=== PATIENT | male | born 1970 | race Caucasian/White ===

== ENCOUNTER → 2024-02-09 | Outpatient (CLI) | payer MEDICARE, MEDICAID, SELFPAY ==
--- NOTE | 2024-02-09 11:30 | XR_ITS ---
Examination: CT chest, without intravenous contrast. Sagittal and coronal 2-D reconstructions. Exam date and time: February 09, 2024 1127 hours INDICATIONS: Nicotine dependence knee 5 years, cardiac stent placement last year CTDI:vol (mGy) 14.2 DLP: (mGycm) 548 Technique: Multiple 3.0 mm axial sections of the chest to been obtained. Bone and lung density settings are obtained. Sagittal and coronal 2-D reconstructions have been obtained. Low dose protocols were performed. One or more of the following dose reduction techniques were used; automated exposure control, adjustment of the mA and/or KV according to patient size, use of iterative reconstruction technique. Findings: No thoracic aortic aneurysm dilatation Pulmonary artery segments are not enlarged Heavy calcification coronary arteries No paratracheal tracheobronchial or bronchopulmonary adenopathy 2 mm pulmonary nodule right upper lobe image 149 2 mm pulmonary nodule right upper lobe image 158 2 mm pulmonary nodule right midlung image 187 2 mm pulmonary nodule left lower lobe image 203 3 mm pulmonary nodule left lower lobe image 249 3 mm pulmonary nodule left lower lobe image 39 4 mm pulmonary nodule right lower lobe image 274 No pneumonia or pulmonary edema No focal liver or splenic lesions No gallstones Mild osteopenia IMPRESSION: Subcentimeter pulmonary nodules as above With this study as baseline recommend 6 month follow-up CT chest without contrast to document stability of these pulmonary nodules
== END | disposition home or self-care (01) ==
PROVIDERS: Referring Provider Nurse Practitioner Family; Visit Provider Nurse Practitioner Family
DX: R91.8 Other nonspecific abnormal finding of lung field (principal); Z87.891 Personal history of nicotine dependence
CPT/HCPCS: 71271

== ENCOUNTER → 2024-03-04 | Outpatient (CLI) | payer MEDICARE, MEDICAID, SELFPAY ==
--- NOTE | 2024-03-04 09:00 | XR_ITS ---
Examination: MRI left hip without intravenous contrast. Date and time of exam: March 04, 2024 1112 hours INDICATIONS: Patient fell 3 years ago with injury of the left hip, persistent left hip pain and stiffness Technique: Multiple MRI images of the left hip have been obtained T1 weighted coronal sections, TR 500, TE 12 Proton density coronal fat saturated images, TR 3000, TE 71 T2-weighted coronal images, 5850, TE 104 T1-weighted axial images, TR 521, TE 12 T2-weighted axial fat suppressed images, TR 5730, TE 103. Findings: Moderate narrowing right and left hip joints No occult fracture or marrow edema bone contusion or avascular necrosis involving the left or right hip High-resolution left hip images demonstrate mild fraying of the superior left hip labral margins Bones of the pelvis intact IMPRESSION: Moderate narrowing right and left hip joints No occult fracture or marrow edema or bone contusion Mild fraying of the left hip superior labral margin
--- NOTE | 2024-03-04 09:45 | XR_ITS ---
Exam: MRI knee without contrast, left Date and time of exam: March 04, 2024 11:12 AM Comparison January 22, 2020 INDICATIONS: Injury to the knee 30 years ago with increasing knee pain and instability joint clicking stiffness difficulty walking Technique: Multiple axial, coronal, and sagittal sections on the knee have been obtained. T2-Weighted sagittal, fat-suppressed images, TR 3,500, TE 62, T2 weighted coronal fat-saturated images, TR 3,500, TE 62 Proton density sagittal sections, TR 1800, TE 31. T-1 weighted coronal images, TR 524, TE 13.0 Findings: Medial meniscus anterior horn intact. Medial meniscus, body is intact. Posterior horn medial meniscus intact. Lateral meniscus anterior horn horizontal linear tear Lateral meniscus, body is intact Posterior horn lateral meniscus is intact Anterior cruciate ligament moderate sprain Posterior cruciate ligament appears intact. Knee effusion is small. Quadriceps and patellar tendons appear intact. There is no evidence of tendinosis. Inflammatory change or fracture of Hoffa's fat pad is not seen. Medial patellar facet demonstrates mild thinning. Lateral patellar facet cartilage demonstrates mild thinning. Trochlear cartilage demonstrates mild thinning. Marrow signal adequate. Medial collateral ligament appears intact. No meniscocapsular separation is seen. Illiotibial band and fibular collateral ligament are intact. Biceps femoris tendons appear intact. Medial femoral condylar articular cartilage demonstrates moderate thinning. Lateral femoral condylar articular cartilage demonstratesmoderate thinning. Tibial plateau cartilage demonstrates moderate thinning. Impression: Horizontal linear tear anterior horn lateral meniscus Moderate sprain anterior cruciate ligament
== END | disposition home or self-care (01) ==
PROVIDERS: PCP Nurse Practitioner Family; Referring Provider Nurse Practitioner Family; Visit Provider Nurse Practitioner Family
DX: S83.282A Other tear of lateral meniscus, current injury, left knee, initial encounter (principal); S83.512A Sprain of anterior cruciate ligament of left knee, initial encounter; X58.XXXA Exposure to other specified factors, initial encounter
CPT/HCPCS: 73721

== ENCOUNTER → 2024-06-17 | Outpatient (CLI) | payer MEDICARE, MEDICAID, SELFPAY ==
--- NOTE | 2024-06-17 10:33 | XR_ITS ---
Examination: CT soft tissue neck, with intravenous contrast. 2-D coronal reconstructions. 2-D sagittal reconstructions. Date and time of exam :June 17, 2024 1145 hours Comparison January 25, 2023 INDICATIONS: Difficulty with swallowing 1 year. CTDI: vol (mGy):10.4 DLP: (mGycm):320 Technique: 1.25 mm axial sections of the neck of the obtained. Coronal and sagittal reconstructions have been obtained. Intravenous contrast administered 45 cc Isovue-300. Low dose protocols were performed. One or more of the following dose reduction techniques were used; automated exposure control, adjustment of the mA and/or KV according to patient size, use of iterative reconstruction technique. Findings: The optic globes exhibit symmetry Symmetrical nasopharynx oropharynx Small bilateral carotid triangle lymph nodes, the largest on the left side 9 mm, the largest on the right side 8 mm The larynx appears normal 4 mm right thyroid nodule, no thyromegaly Symmetrical submandibular glands Normal epiglottis Moderate to advanced degenerative disc disease C5-C6 IMPRESSION: At this time no pathologic lymphadenopathy Given the patient's presentation, consider standard fluoroscopically guided esophagram follow-up
[2024-06-17 11:31] LABS: Anion Gap 8 (7-16); BUN/Creatinine Ratio 19 Ratio (12-20); Blood Urea Nitrogen 35 mg/dL (9-23); Calcium 9.7 mg/dL (8.3-10.6); Carbon Dioxide 26.8 mMol/L (20.0-31.0); Chloride 108 mMol/L (98-107); Creatinine (Component) 1.8 mg/dL (0.6-1.3); Glucose 117 mg/dL (74-106); Osmolality,Calculated 293 (275-295); Potassium 4.7 mMol/L (3.4-5.1); Sodium 143 mMol/L (136-145); eGFR 44 See Note
[2024-06-17 12:05] LABS: Parathyroid Hormone Intact 70.9 pg/ml (18.5-88.0)
== END | disposition home or self-care (01) ==
LOC: CDIM 10:04
PROVIDERS: Referring Provider Nurse Practitioner Family; Visit Provider Nurse Practitioner Family
DX: R59.0 Localized enlarged lymph nodes (principal)
CPT/HCPCS: 36415; 70491; 80048; 83970; A4649; Q9967

== ENCOUNTER → 2024-07-04 | Outpatient (CLI) | payer MEDICARE, MEDICAID, SELFPAY ==
--- NOTE | 2024-07-04 | XR_ITS ---
Examination: Knee, left , 3 views Technique: Knee AP, lateral, oblique 3 views Date and time of exam: July 04, 2024 1220 hours INDICATIONS: Left knee pain one year. FINDINGS: Mild osteopenia. Mild narrowing medial joint space No fracture or dislocation IMPRESSION: Mild narrowing medial joint space
== END | disposition home or self-care (01) ==
PROVIDERS: PCP Nurse Practitioner Family; Referring Provider Nurse Practitioner Family; Visit Provider Nurse Practitioner Family
DX: M25.862 Other specified joint disorders, left knee (principal)
CPT/HCPCS: 73562

== ENCOUNTER → 2024-07-18 | Outpatient (CLI) | payer MEDICARE, MEDICAID, SELFPAY ==
--- NOTE | 2024-07-18 10:06 | XR_ITS ---
Examination: Esophagram standard Fluoroscopy 23 spot fluoroscopic films of the esophagus Upright PA chest single view Upright soft tissue lateral neck single view Date and time: July 18, 2024 1014 hours INDICATIONS: History focal injury 15 years ago, history cancer, difficulty swallowing TECHNIQUE AND FINDINGS: Upright PA chest demonstrates coronary artery calcification No pneumonia or pulmonary edema Soft tissue lateral neck demonstrates moderate degenerative disc disease C5-C6 epiglottis does not appear thickened Primary peristaltic esophageal waves noted Moderate intermittent gastroesophageal reflux. There is no stricture at the gastroesophageal junction No constricting esophageal lesion IMPRESSION: Significant coronary artery calcification Moderate intermittent gastroesophageal reflux There is no stricture at the gastroesophageal junction
== END | disposition home or self-care (01) ==
LOC: CDIM 09:55
PROVIDERS: PCP Nurse Practitioner Family; Referring Provider Nurse Practitioner Family; Visit Provider Nurse Practitioner Family
DX: I25.10 Atherosclerotic heart disease of native coronary artery without angina pectoris (principal); K21.9 Gastro-esophageal reflux disease without esophagitis
CPT/HCPCS: 74220; A4699

== ENCOUNTER → 2024-07-26 | Outpatient (CLI) | payer MEDICARE, MEDICAID, SELFPAY ==
--- NOTE | 2024-07-26 16:00 | XR_ITS ---
Examination: CT chest, without intravenous contrast. Sagittal and coronal 2-D reconstructions. Exam date and time: July 26, 2024 1507 hours Comparison February 09, 2024 INDICATIONS: Chest pain shortness of breath several days, smoking history, CT chest February 09, 2024 multiple bilateral pulmonary nodules CTDI:vol (mGy) 18.8 DLP: (mGycm) 529 Technique: Multiple 3.0 mm axial sections of the chest to been obtained. Bone and lung density settings are obtained. Sagittal and coronal 2-D reconstructions have been obtained. Low dose protocols were performed. One or more of the following dose reduction techniques were used; automated exposure control, adjustment of the mA and/or KV according to patient size, use of iterative reconstruction technique. Findings: No thoracic aortic aneurysm dilatation Pulmonary artery segments are not enlarged Significant coronary artery calcification No paratracheal tracheobronchial or bronchopulmonary adenopathy No definite change in subcentimeter bilateral pulmonary nodules No new pulmonary nodules No pneumonia or pulmonary edema No visualized liver or splenic lesion Contracted gallbladder No pancreatic or adrenal mass IMPRESSION: Stable subcentimeter bilateral pulmonary nodules, no new pulmonary nodules Consider 1 additional 6 month follow-up CT chest without contrast
== END | disposition home or self-care (01) ==
LOC: CCTX 14:48
PROVIDERS: PCP Nurse Practitioner Family; Referring Provider Nurse Practitioner Family; Visit Provider Nurse Practitioner Family
DX: R91.8 Other nonspecific abnormal finding of lung field (principal)
CPT/HCPCS: 71250

== ENCOUNTER → 2024-08-05 | Outpatient (CLI) | payer MEDICARE, MEDICAID, SELFPAY ==
--- NOTE | 2024-08-05 09:40 | XR_ITS ---
Examination: CTA carotids with intravenous contrast CTA brain, head with intravenous contrast. 2-D sagittal, coronal reconstructions. 3-D reconstructions. Exam date and time: August 05, 2024 1144 hours INDICATIONS: Dizziness episodes one year, diagnosis occlusion stenosis unspecified carotid artery CTDI: vol (mGy) 31.9 DLP: (mGycm) 157 Technique: Multiple CTA axial brain, head carotid images post intravenous contrast injection 60 cc Isovue 300. 2-D sagittal, coronal reconstructions. 3-D reconstructions, 3-D post processing including vascular maximum intensity projection images. Low dose protocols were performed. One or more of the following dose reduction techniques were used; automated exposure control, adjustment of the mA and/or KV according to patient size, use of iterative reconstruction technique. Findings: Moderate calcification right carotid bifurcation, 10-30% stenosis right carotid bifurcation origin right internal carotid artery Mild calcification left carotid bifurcation, 0-10% stenosis carotid bifurcation origin left internal carotid artery Mildly dominant right vertebral artery with no critical stenoses 50% stenosis juxtasellar portion left internal carotid artery image 58 No large vessel occlusions involving middle cerebral anterior cerebral arteries basilar artery or posterior cerebral artery branches Basilar artery is diffusely small in caliber IMPRESSION: 10:30 percent stenosis right carotid bifurcation origin right internal carotid artery 0-10% stenosis left carotid bifurcation origin left internal carotid artery
[2024-08-05 10:51] LABS: Basophils % (Auto) 1 % (0-2.5); Eosinophils # (Auto) 0.1 Thou/mm3 (0.0-0.5); Eosinophils % (Auto) 2 % (0-10); Hematocrit 39.5 % (41.0-53.0); Hemoglobin 13.5 g/dL (13.5-16.0); Immature Granulocytes % (Auto) 0 % (0-0); Immature Granulocytes Auto 0.02 Thou/mm3 (0.00-0.00); Lymphocytes # (Auto) 1.7 Thou/mm3 (1.0-4.8); Lymphocytes % (Auto) 24 % (10-50); Mean Corpuscular HGB Conc 34.2 g/dl (31.0-37.0); Mean Corpuscular Hemoglobin 29.9 pg (25.0-35.0); Mean Corpuscular Volume 87 fL (80-100); Monocytes # (Auto) 0.6 Thou/mm3 (0.0-0.8); Monocytes % (Auto) 9 % (0-12); Neutrophils # (Auto) 4.3 Thou/mm3 (1.8-7.7); Neutrophils % (Auto) 64 % (37-80); Nucleated Red Blood Cell % 0 /100 WBC (0); Platelet Count 331 Thou/mm3 (140-440); RDW Standard Deviation 41.4 fL (35.1-43.9); Red Blood Count 4.52 Miln/mm3 (4.50-5.90); White Blood Count 6.8 Thou/mm3 (3.8-10.6)
[2024-08-05 11:00] LABS: Anion Gap 8 (7-16); BUN/Creatinine Ratio 13 Ratio (12-20); Blood Urea Nitrogen 19 mg/dL (9-23); Calcium 10.3 mg/dL (8.3-10.6); Carbon Dioxide 23.9 mMol/L (20.0-31.0); Chloride 108 mMol/L (98-107); Creatinine (Component) 1.5 mg/dL (0.6-1.3); Glucose 118 mg/dL (74-106); Osmolality,Calculated 282 (275-295); Potassium 4.4 mMol/L (3.4-5.1); Sodium 140 mMol/L (136-145); eGFR 55 See Note
[2024-08-05 11:53] LABS: INR 0.9 (0.9-1.3); Partial Thromboplastin Time 25.5 Seconds (22.0-36.0)
== END | disposition home or self-care (01) ==
LOC: CDIM 09:05 → COPL 09:14 → CCTX 08-14 06:25
PROVIDERS: PCP Nurse Practitioner Family; Referring Provider Internal Medicine; Visit Provider Internal Medicine
DX: I65.21 Occlusion and stenosis of right carotid artery (principal); I25.10 Atherosclerotic heart disease of native coronary artery without angina pectoris; I48.91 Unspecified atrial fibrillation
CPT/HCPCS: 36415; 70498; 80048; 85025; 85610; 85730; A4649; Q9967

== ENCOUNTER → 2024-08-21 | Outpatient (CLI) | payer MEDICARE, MEDICAID, SELFPAY ==
[2024-08-21 15:10] LABS: Basophils # (Auto) 0.1 Thou/mm3 (0.0-0.2); Basophils % (Auto) 1 % (0-2.5); Eosinophils # (Auto) 0.2 Thou/mm3 (0.0-0.5); Eosinophils % (Auto) 2 % (0-10); Hematocrit 39.4 % (41.0-53.0); Hemoglobin 12.8 g/dL (13.5-16.0); Immature Granulocytes Auto 0.02 Thou/mm3 (0.00-0.00); Lymphocytes # (Auto) 2.5 Thou/mm3 (1.0-4.8); Lymphocytes % (Auto) 34 % (10-50); Mean Corpuscular HGB Conc 32.5 g/dl (31.0-37.0); Mean Corpuscular Hemoglobin 29.2 pg (25.0-35.0); Mean Corpuscular Volume 90 fL (80-100); Monocytes # (Auto) 0.9 Thou/mm3 (0.0-0.8); Monocytes % (Auto) 12 % (0-12); Neutrophils # (Auto) 3.6 Thou/mm3 (1.8-7.7); Neutrophils % (Auto) 51 % (37-80); Nucleated Red Blood Cell # 0.00 Thou/mm3 (0.00-0.00); Nucleated Red Blood Cell % 0 /100 WBC (0); Platelet Count 313 Thou/mm3 (140-440); RDW Standard Deviation 41.9 fL (35.1-43.9); Red Blood Count 4.38 Miln/mm3 (4.50-5.90); White Blood Count 7.1 Thou/mm3 (3.8-10.6)
[2024-08-21 15:17] LABS: Anion Gap 9 (7-16); BUN/Creatinine Ratio 14 Ratio (12-20); Blood Urea Nitrogen 23 mg/dL (9-23); Calcium 9.6 mg/dL (8.3-10.6); Carbon Dioxide 25.4 mMol/L (20.0-31.0); Chloride 110 mMol/L (98-107); Creatinine (Component) 1.7 mg/dL (0.6-1.3); Glucose 96 mg/dL (74-106); Osmolality,Calculated 290 (275-295); Potassium 4.6 mMol/L (3.4-5.1); Sodium 144 mMol/L (136-145); eGFR 47 See Note
[2024-08-21 15:19] LABS: INR 0.9 (0.9-1.3); Partial Thromboplastin Time 25.7 Seconds (22.0-36.0); Prothrombin Time 10.3 Seconds (9.0-12.2)
== END | disposition home or self-care (01) ==
PROVIDERS: PCP Nurse Practitioner Family; Referring Provider Internal Medicine; Visit Provider Internal Medicine
DX: I25.10 Atherosclerotic heart disease of native coronary artery without angina pectoris (principal); I48.91 Unspecified atrial fibrillation
CPT/HCPCS: 36415; 80048; 85025; 85610; 85730

== ENCOUNTER 2024-09-06 12:35 | Day surgery (SDC) | payer MEDICARE, MEDICAID, SELFPAY ==
[2024-09-05 15:02] VITALS: BMI 25.5
[2024-09-06] VITALS (9 sets, daily range): BP systolic 114–152; BP diastolic 71–98; PULSE 54–78; RESP 12–19; TEMP 36.4–36.6; O2SAT 94–100; BMI 26.9
[2024-09-06] MEDS: SODIUM CHLORIDE 0.9% 500 ML 500 ML 20 ML IV (14:33)
[2024-09-06] MEDS: BENZOCAINE 20% (Hurricaine) SPRAY 1 DOSE TOP (14:33)
[2024-09-06] MEDS: MIDAZOLAM INJ 1 MG/ML VIAL 2 ML (ASD USE ONLY) 2 MG IVP (14:42)
[2024-09-06] MEDS: fentaNYL CIT INJ 50 mCg/ML AMP 2ML (ASD USE ONLY) IVP (14:42)
--- NOTE | 2024-09-06 15:10 | SUR.PHASEII ---
1509: able to drink water without any difficulty.
--- NOTE | 2024-09-06 15:19 | SUR.PHASEII ---
1451: received pt from OR via [facility]. received report from SWATI Almaraz. pt arousable but drifts back to sleep. no s/s of resp. distress or discomfort. no s/s of pain or discomfort.
--- NOTE | 2024-09-06 15:40 | SUR.PHASEII ---
1540: pt discharge to home via wheelchair. pt alert and oriented. no s/s of resp. distress or discomfort. discharge instructions to pt and primary youth care specialist, verbalizes understanding.
== END 2024-09-06 15:40 | disposition home or self-care (01) ==
PROVIDERS: PCP Family Medicine; Referring Provider Specialist; Visit Provider Specialist
PROC: (CPT 43239; principal; 2024-09-06 14:00)
DX: K22.2 Esophageal obstruction (principal); K20.90 Esophagitis, unspecified without bleeding; K31.89 Other diseases of stomach and duodenum; K29.50 Unspecified chronic gastritis without bleeding
CPT/HCPCS: 43248; 43239; J1200; J2250; J3010; J7999; A9270

== ENCOUNTER → 2024-11-04 | Outpatient (CLI) | payer MEDICARE, MEDICAID, SELFPAY ==
[2024-11-04 11:06] LABS: Collection Type, Urine Clean Catch
[2024-11-04 11:34] LABS: Basophils # (Auto) 0.1 Thou/mm3 (0.0-0.2); Basophils % (Auto) 1 % (0-2.5); Eosinophils # (Auto) 0.1 Thou/mm3 (0.0-0.5); Eosinophils % (Auto) 2 % (0-10); Hematocrit 44.0 % (41.0-53.0); Hemoglobin 14.1 g/dL (13.5-16.0); Immature Granulocytes Auto 0.03 Thou/mm3 (0.00-0.00); Lymphocytes # (Auto) 1.8 Thou/mm3 (1.0-4.8); Lymphocytes % (Auto) 27 % (10-50); Mean Corpuscular HGB Conc 32.0 g/dl (31.0-37.0); Mean Corpuscular Hemoglobin 28.7 pg (25.0-35.0); Mean Corpuscular Volume 90 fL (80-100); Monocytes # (Auto) 0.6 Thou/mm3 (0.0-0.8); Monocytes % (Auto) 9 % (0-12); Neutrophils # (Auto) 4.1 Thou/mm3 (1.8-7.7); Neutrophils % (Auto) 61 % (37-80); Nucleated Red Blood Cell # 0.00 Thou/mm3 (0.00-0.00); Nucleated Red Blood Cell % 0 /100 WBC (0); Platelet Count 360 Thou/mm3 (140-440); RDW Standard Deviation 41.8 fL (35.1-43.9); Red Blood Count 4.91 Miln/mm3 (4.50-5.90); White Blood Count 6.7 Thou/mm3 (3.8-10.6)
[2024-11-04 11:40] LABS: Bilirubin,Urine Negative (Negative); Blood,Urine Negative (Negative); Clarity,Urine Clear (Clear/Hazy); Color,Urine Lt-Yellow (Lt Yel-Yel); Culture Indicated,Urine Not Indicated; Glucose, Urine Negative (Negative); Hyaline Casts,Urine < 1 /hpf (0-1); Ketones,Urine Negative (Negative); Leukocyte Esterase,Urine Negative (Negative); Nitrite,Urine Negative (Negative); PH,Urine 6.0 (5.0-7.0); Protein,Urine Negative (Neg - Trace); RBC,Urine 2 /hpf (0-3); Specific Gravity,Urine 1.022 (1.001-1.035); Squamous Epithelial Cell,Urine < 1 /hpf (0-5); Urobilinogen,Urine Negative mg/dL (0.0-1.0); WBC,Urine 1 /hpf (0-5)
[2024-11-04 11:41] LABS: Creatinine MALB Rnd Ur 133 mg/dL (30-125); Microalbumin Creat Ratio 3 mg/gCrea (<30); Microalbumin, Random Urine 4 mg/L (0-300)
[2024-11-04 11:43] LABS: Glucose Estimated Average 120 mg/dL (80-131); Hemoglobin A1C 5.8 % Hgb (4.8-6.0); Parathyroid Hormone Intact 106.9 pg/ml (18.5-88.0)
[2024-11-04 11:51] LABS: Vitamin B12 436 pg/mL (211-911); Vitamin D 25 Hydroxy Total 24.1 ng/mL (7.3-40.2)
[2024-11-04 12:02] LABS: Alanine Aminotransferase 19 U/L (10-49); Albumin, Serum 5.0 gm/dL (3.5-5.0); Albumin/Globulin Ratio 1.9 (1.2-2.2); Alkaline Phosphatase 58 U/L (46-116); Anion Gap 7 (7-16); Aspartate Amino Transferase 18 U/L (0-34); BUN/Creatinine Ratio 15 Ratio (12-20); Bilirubin,Total 0.4 mg/dL (0.3-1.2); Blood Urea Nitrogen 23 mg/dL (9-23); Calcium 10.5 mg/dL (8.3-10.6); Calcium (Corrected) 10.5 mg/dL (8.5-10.1); Carbon Dioxide 25.7 mMol/L (20.0-31.0); Cardiac Risk Estimate 5.5 RATIO (4.0-6.7); Chloride 108 mMol/L (98-107); Cholesterol 215 mg/dL (132-200); Creatinine (Component) 1.5 mg/dL (0.6-1.3); Globulin 2.6 gm/dL (2.3-3.5); Glucose 106 mg/dL (74-106); HDL Cholesterol 39 mg/dL (40-60); LDL Cholesterol,Calculated 132 mg/dL (0-130); Osmolality,Calculated 284 (275-295); Potassium 5.0 mMol/L (3.4-5.1); Sodium 141 mMol/L (136-145); Thyroid Stimulating Hormone 1.19 uIU/mL (0.55-4.78); Total Protein 7.6 gm/dL (5.7-8.2); Triglycerides 218 mg/dL (30-150); eGFR 55 See Note
== END | disposition home or self-care (01) ==
PROVIDERS: PCP Nurse Practitioner Family; Referring Provider Nurse Practitioner Family; Visit Provider Nurse Practitioner Family
DX: I12.9 Hypertensive chronic kidney disease with stage 1 through stage 4 chronic kidney disease, or unspecified chronic kidney disease (principal); N18.30 Chronic kidney disease, stage 3 unspecified; E78.5 Hyperlipidemia, unspecified; N28.1 Cyst of kidney, acquired; R73.03 Prediabetes; D51.9 Vitamin B12 deficiency anemia, unspecified; E55.9 Vitamin D deficiency, unspecified; N40.1 Benign prostatic hyperplasia with lower urinary tract symptoms; I25.10 Atherosclerotic heart disease of native coronary artery without angina pectoris
CPT/HCPCS: 36415; 80053; 80061; 81001; 82043; 82306; 82570; 82607; 83036; 83970; 84443; 85025

== ENCOUNTER → 2024-11-12 | Outpatient (CLI) | payer MEDICARE, MEDICAID, SELFPAY ==
--- NOTE | 2024-11-12 | XR_ITS ---
Examination: Left wrist 2 views Technique one AP lateral left wrist 2 views Date and time: November 12, 2024 1146 hours INDICATIONS: Injury to the wrist one month ago, wrist pain. FINDINGS: No fracture or dislocation. Moderate narrowing radiocarpal joint Moderate osteoarthritis first carpometacarpal joint IMPRESSION: No fracture or dislocation
== END | disposition home or self-care (01) ==
LOC: CCTX 11:11
PROVIDERS: PCP Nurse Practitioner Family; Referring Provider Nurse Practitioner Family; Visit Provider Nurse Practitioner Family
DX: S69.92XA Unspecified injury of left wrist, hand and finger(s), initial encounter (principal); X58.XXXA Exposure to other specified factors, initial encounter
CPT/HCPCS: 73100

== ENCOUNTER → 2024-12-06 | Outpatient (CLI) | payer MEDICARE, MEDICAID, SELFPAY ==
--- NOTE | 2024-12-06 | XR_ITS ---
Examination: CT chest, without intravenous contrast. Sagittal and coronal 2-D reconstructions. Exam date and time: December 06, 2024, 1056 hours, comparison July 26, 2024 INDICATIONS: Epigastric pain chest tightness beginning 6 months ago CTDI:vol (mGy) 11 DLP: (mGycm) 149 Technique: Multiple 3.0 mm axial sections of the chest to been obtained. Bone and lung density settings are obtained. Sagittal and coronal 2-D reconstructions have been obtained. Low dose protocols were performed. One or more of the following dose reduction techniques were used; automated exposure control, adjustment of the mA and/or KV according to patient size, use of iterative reconstruction technique. Findings: No thoracic aortic aneurysmal dilatation Thoracic aortic calcification noted Pulmonary artery segments are not enlarged Heavy calcification left anterior descending left circumflex right coronary arteries No mediastinal lymphadenopathy Bilateral 10-2 3 mm pulmonary nodules not clearly seen on the prior study No pneumonia or pulmonary edema No visualized upper splenic lesion No gallstones No pancreatic mass IMPRESSION: Heavy coronary artery calcification No mediastinal lymphadenopathy Recommend 6-month follow-up CT chest without contrast to document stability of multiple subcentimeter pulmonary nodules
[2024-12-06 10:52] LABS: Calcium, Ionized 4.8 mg/dL (4.6-5.6)
[2024-12-06 11:10] LABS: Anion Gap 8 (7-16); BUN/Creatinine Ratio 13 Ratio (12-20); Blood Urea Nitrogen 20 mg/dL (9-23); Calcium 10.1 mg/dL (8.3-10.6); Carbon Dioxide 27.5 mMol/L (20.0-31.0); Chloride 106 mMol/L (98-107); Creatinine (Component) 1.6 mg/dL (0.6-1.3); Glucose 110 mg/dL (74-106); Magnesium 2.0 mg/dL (1.6-2.6); Osmolality,Calculated 284 (275-295); Potassium 5.0 mMol/L (3.4-5.1); Sodium 141 mMol/L (136-145); eGFR 51 See Note
[2024-12-06 11:15] LABS: Parathyroid Hormone Intact 93.0 pg/ml (18.5-88.0)
== END | disposition home or self-care (01) ==
PROVIDERS: PCP Nurse Practitioner Family; Referring Provider Nurse Practitioner Family; Visit Provider Nurse Practitioner Family
DX: I25.10 Atherosclerotic heart disease of native coronary artery without angina pectoris (principal); R91.8 Other nonspecific abnormal finding of lung field; E21.3 Hyperparathyroidism, unspecified
CPT/HCPCS: 36415; 71250; 80048; 82330; 83735; 83970

== ENCOUNTER → 2024-12-12 | Outpatient (CLI) | payer MEDICARE, MEDICAID, SELFPAY ==
--- NOTE | 2024-12-12 09:43 | XR_ITS ---
Examination: Shoulder, left, 3 views Technique: Shoulder AP internal rotation, AP external rotation, Y view shoulder, 3 views Exam date and time : December 12, 2024, 0951 hours INDICATIONS: Left shoulder pain beginning 1 month ago FINDINGS: Minimal osteoarthritis glenohumeral joint No shoulder fracture or dislocation No calcific tendinitis IMPRESSION: Minimal osteoarthritis glenohumeral joint
== END | disposition home or self-care (01) ==
LOC: CDIM 09:26
PROVIDERS: PCP Nurse Practitioner Family; Referring Provider Nurse Practitioner Family; Visit Provider Nurse Practitioner Family
DX: M19.012 Primary osteoarthritis, left shoulder (principal)
CPT/HCPCS: 73030

== ENCOUNTER → 2024-12-26 | Outpatient (CLI) | payer MEDICARE, MEDICAID, SELFPAY ==
[2024-12-26 10:11] LABS: Basophils # (Auto) 0.1 Thou/mm3 (0.0-0.2); Basophils % (Auto) 1 % (0-2.5); Eosinophils # (Auto) 0.2 Thou/mm3 (0.0-0.5); Eosinophils % (Auto) 2 % (0-10); Hematocrit 41.9 % (41.0-53.0); Hemoglobin 13.5 g/dL (13.5-16.0); Immature Granulocytes Auto 0.03 Thou/mm3 (0.00-0.00); Lymphocytes # (Auto) 2.3 Thou/mm3 (1.0-4.8); Lymphocytes % (Auto) 24 % (10-50); Mean Corpuscular HGB Conc 32.2 g/dl (31.0-37.0); Mean Corpuscular Hemoglobin 29.0 pg (25.0-35.0); Mean Corpuscular Volume 90 fL (80-100); Monocytes # (Auto) 0.8 Thou/mm3 (0.0-0.8); Monocytes % (Auto) 8 % (0-12); Neutrophils # (Auto) 6.6 Thou/mm3 (1.8-7.7); Neutrophils % (Auto) 66 % (37-80); Nucleated Red Blood Cell # 0.00 Thou/mm3 (0.00-0.00); Nucleated Red Blood Cell % 0 /100 WBC (0); Platelet Count 323 Thou/mm3 (140-440); RDW Standard Deviation 42.5 fL (35.1-43.9); Red Blood Count 4.65 Miln/mm3 (4.50-5.90); White Blood Count 9.9 Thou/mm3 (3.8-10.6)
[2024-12-26 10:42] LABS: INR 0.9 (0.9-1.3); Partial Thromboplastin Time 24.7 Seconds (22.0-36.0); Prothrombin Time 9.8 Seconds (9.0-12.2)
[2024-12-26 11:22] LABS: Anion Gap 9 (7-16); BUN/Creatinine Ratio 18 Ratio (12-20); Blood Urea Nitrogen 28 mg/dL (9-23); Calcium 9.9 mg/dL (8.3-10.6); Carbon Dioxide 26.0 mMol/L (20.0-31.0); Chloride 109 mMol/L (98-107); Creatinine (Component) 1.6 mg/dL (0.6-1.3); Glucose 113 mg/dL (74-106); Osmolality,Calculated 293 (275-295); Potassium 5.0 mMol/L (3.4-5.1); Sodium 144 mMol/L (136-145); eGFR 51 See Note
== END | disposition home or self-care (01) ==
LOC: COPL 09:21
PROVIDERS: PCP Family Medicine; Referring Provider Internal Medicine; Visit Provider Internal Medicine
DX: I25.10 Atherosclerotic heart disease of native coronary artery without angina pectoris (principal); I48.91 Unspecified atrial fibrillation
CPT/HCPCS: 36415; 80048; 85025; 85610; 85730